=== PATIENT | female | born 1930 | race Caucasian/White ===

== ENCOUNTER → 2016-08-26 | Outpatient (CLI) | payer OTHER, BC | LOC: BMCIMAGING 15:28 | PROVIDERS: ATTEND Internal Medicine | DX: M25.562 Pain in left knee (principal) ==

== ENCOUNTER 2017-12-02 18:22 | Emergency (ER) | payer OTHER, BC ==
--- NOTE | 2017-12-02 18:59 | EDPHY ---
H & P Stated Complaint: STATES L HIP IS DISLOCATED BUT IS AMBULATORY Time Seen by Provider: 12/02/17 18:40 HPI/ROS: CHIEF COMPLAINT: Left hip pain HISTORY OF PRESENT ILLNESS: The patient is an 87-year-old female who states that she went to [facility] a few weeks ago and slipped on a trail. She has had moderate left hip pain ever since. A few days ago she began walking with a cane. She presented to her primary today who obtained x-rays that revealed a partially dislocated left hip. She had both hips replaced the several years ago. She denies knee or ankle pain. No back pain. REVIEW OF SYSTEMS: Constitutional: denies: chills, fever, recent illness, recent injury EENTM: denies: blurred vision, double vision, nose congestion Respiratory: denies: cough, shortness of breath Cardiac: denies: chest pain, irregular heart rate, lightheadedness, palpitations Gastrointestinal/Abdominal: denies: abdominal pain, diarrhea, nausea, vomiting, blood streaked stools Genitourinary: denies: dysuria, frequency, hematuria, pain Musculoskeletal: See HPI Skin: denies: lesions, rash, jaundice, bruising Neurological: denies: headache, numbness, paresthesia, tingling, dizziness, weakness Hematologic/Lymphatic: denies: blood clots, easy bleeding, easy bruising Immunologic/allergic: denies: HIV/AIDS, transplant EXAM: GENERAL: Well-appearing, well-nourished and in no acute distress. HEAD: Atraumatic, normocephalic. EYES: Pupils equal round and reactive to light, extraocular movements intact, sclera anicteric, conjunctiva are normal. ENT: TMs normal, nares patent, oropharynx clear without exudates. Moist mucous membranes. NECK: Normal range of motion, supple without lymphadenopathy or JVD. LUNGS: Breath sounds clear to auscultation bilaterally and equal. No wheezes rales or rhonchi. HEART: Regular rate and rhythm without murmurs, rubs or gallops. ABDOMEN: Soft, nontender, normoactive bowel sounds. No guarding, no rebound. No masses appreciated. BACK: No CVA tenderness, no spinal tenderness, step-offs or deformities EXTREMITIES: Left hip pain, normal range of motion. No pain with axial loading or rotation. No shortening. NEUROLOGICAL: Cranial nerves II through XII grossly intact. Normal speech, normal gait. 5/5 strength, normal movement in all extremities, normal sensation PSYCH: Normal mood, normal affect. SKIN: Warm, dry, normal turgor, no visible rashes or lesions. Source: Patient Exam Limitations: No limitations - Personal History Current Tetanus/Diphtheria Vaccine: Yes - Medical/Surgical History Hx Asthma: No Hx Chronic Respiratory Disease: No Hx Diabetes: No Hx Cardiac Disease: No Hx Renal Disease: No Hx Cirrhosis: No Hx Alcoholism: No Hx HIV/AIDS: No Hx Splenectomy or Spleen Trauma: No Other PMH: BILAT HIP REPLACEMENTS - Family History Significant Family History: No pertinent family hx - Social History Smoking Status: Never smoked Alcohol Use: Sober Drug Use: None Constitutional: Initial Vital Signs Temperature (C) 36.6 C 12/02/17 18:26 Heart Rate 79 12/02/17 18:26 Respiratory Rate 18 12/02/17 18:26 Blood Pressure 131/93 H 12/02/17 18:26 O2 Sat (%) 96 12/02/17 18:26 O2 Delivery Mode Room Air Allergies/Adverse Reactions: No Known Allergies Allergy (Unverified 12/02/17 18:26) Home Medications: Medication Instructions Recorded NK [No Known Home Meds] 12/02/17 Medical Decision Making - Diagnostics Imaging Results: Imaging Impressions Hip X-Ray 12/02/17 18:56 Impression: 1. Central position of the left femoral head component of the hip replacement within the acetabular component once traction and external rotation was applied. Good alignment post reduction. ED Course/Re-evaluation: 7:20 p.m. I am able to reduce the hip with traction even without sedation however it seems to sublux again when traction is released. I have paged Orthopedics for consultation. The 7:30 p.m. I discussed the case with Dr. Babb who was Orthopedics for the [facility]. He will review the images and call back. 7:[address] Babb states that the prosthesis is simply worn out and tends to sublux and should be replaced electively but not emergently. The patient is happy with this and states that she tolerates the pain well as long as she uses her cane. She will continue to do this and follow up with Dr. Babb next week. Differential Diagnosis: Partial list of the Differential diagnosis considered include but were not limited to; hip dislocation, subluxation and although unlikely based on the history and physical exam, I also considered infection, tendon injury, nerve injury, vascular injury, fracture. I discussed these differential diagnoses and the plan with the patient as well as the usual and expected course. The patient understands that the diagnosis is provisional and that in medicine we are not always correct and that further workup is often warranted. Usual and customary warnings were given. All of the patient's questions were answered. The patient was instructed to return to the emergency department should the symptoms at all worsen or return, otherwise to followup with the physician as we discussed. Departure - Departure Disposition: Home, Routine, Self-Care Clinical Impression: Left hip subluxation Qualifiers: Encounter type: initial encounter Qualified Code(s): S73.002A - Unspecified subluxation of left hip, initial encounter Condition: Fair Instructions: Joint Replacement Surgery (DC) Referrals: Elke Pereira MD [Primary Care Provider] - As per Instructions Salvador Babb MD [Medical Doctor] - As per Instructions
[2017-12-02 19:33] VITALS: BP 148/80
== END 2017-12-02 20:21 | disposition home or self-care (01) ==
PROC: 0SSBXZZ Reposition Left Hip Joint, External Approach (ICD-10-PCS; principal; 2017-12-02)
DX: T84.021A Dislocation of internal left hip prosthesis, initial encounter (principal); Y82.8 Other medical devices associated with adverse incidents

== ENCOUNTER → 2017-12-02 | Outpatient (CLI) | payer BC, OTHER | LOC: BMCIMAGING 16:45 | PROVIDERS: ATTEND Internal Medicine | DX: T84.021A Dislocation of internal left hip prosthesis, initial encounter (principal) ==

== ENCOUNTER 2017-12-11 16:51 | Emergency (ER) | payer OTHER ==
[2017-12-11] MEDS ORDERED: NS 500 ML IV ONE (17:44)
--- NOTE | 2017-12-11 17:49 | EDPHY ---
H & P Stated Complaint: ?CELLULITIS AND SWELLING BOTH LEGS/TX FOR UTI WITH DECREASED URINATION Time Seen by Provider: 12/11/17 17:17 HPI/ROS: CHIEF COMPLAINT:leg swelling and rash HISTORY OF PRESENT ILLNESS: This is an 87-year-old female who presents concerned about lower extremity swelling and rash. It appears to be advancing up her legs. She 1st noticed it yesterday. It is not pruritic. It is not painful. She states that she was recently treated for a urinary tract infection. She is unable to state what antibiotic was prescribed for her hand seems confused about the medication she was taking. She had an antibiotic that she was advised to take twice daily but instead she took it once daily and took another antibiotic that she had once daily. She tells me that she was given an antibiotic by her primary care provider and also given some pills by the laboratory at [facility]--this does not make sense to me. In any event, she began antibiotics around December 03 and recently discontinued them. She states that she has not urinated today. She has had some trouble passing her urine. When she wakes up in the morning she cannot make it to the bathroom so she is using adult diapers at night and voids what seems like a large amount in the morning. She has not had fever. She denies back pain. She also mentioned being treated for urinary tract infection in September, after returning from [facility]. I do not find any records supporting this. REVIEW OF SYSTEMS: A ten point review of systems was performed and is negative with the exception of the items mentioned in the HPI. I felt I felt that she was a difficult historian, as she had trouble staying on topic and keeping track of the time frames. Past medical history: Glaucoma Past surgical history: bilateral hip replacement Social history: She lives independently at the [facility]. No tobacco or alcohol use. General Appearance: Alert. Vital signs reviewed. HR 112 at triage ( subsequently normal), BP 106/62. Eyes: Pupils equal and round, no conjunctival injection, no discharge. Anicteric. ENT, Mouth: Mucous membranes are slightly dry, no oropharyngeal erythema or edema. Neck: No lymphadenopathy, supple. Respiratory: Lungs are clear to auscultation; no wheezes, rales, or rhonchi. Cardiovascular: Regular rate and rhythm; no murmur, rub, or gallop. Gastrointestinal: Abdomen is soft and nontender, no masses or organomegaly, bowel sounds normal. Skin: Warm and dry. Back: Nontender to palpation over the thoracolumbar spine. No CVAT. Extremities: Bilateral lower extremity edema, nonblanching contiguous purpuric lesions bilateral lower extremities below the knees, urticarial appearing rash above knees. FAROM both LEs. Neurological: Alert and oriented. Moving all four extremities easily and equally. Normal strength in both lower extremities. Sensation intact to light touch over both lower extremities. Pulses: 2+ femoral and dorsalis pedis pulses bilaterally. Psychiatric: Normal affect. - Personal History Current Tetanus Diphtheria and Acellular Pertussis (TDAP): Unsure - Medical/Surgical History Hx Asthma: No Hx Chronic Respiratory Disease: No Hx Diabetes: No Hx Cardiac Disease: No Hx Renal Disease: No Hx Cirrhosis: No Hx Alcoholism: No Hx HIV/AIDS: No Hx Splenectomy or Spleen Trauma: No Other PMH: BILAT HIP REPLACEMENTS - Social History Smoking Status: Never smoked Constitutional: Initial Vital Signs Temperature (C) 36.3 C 12/11/17 17:05 Heart Rate 112 H 12/11/17 17:05 Respiratory Rate 18 12/11/17 17:05 Blood Pressure 106/62 12/11/17 17:05 O2 Sat (%) 94 12/11/17 17:05 O2 Delivery Mode Room Air Allergies/Adverse Reactions: No Known Allergies Allergy (Verified 12/11/17 17:04) Home Medications: Medication Instructions Recorded Aspirin 81mg (*) 12/11/17 Glaucoma Meds 12/11/17 Macrobid 12/11/17 Medical Decision Making ED Course/Re-evaluation: I was initially concerned about continued urinary tract infection in the face of possibly not having follow directions for antibiotics. She stated that she was having difficulty urinating. She was unable to void while in the emergency department. She received 1.5 L of IV fluid. She still did not void and nursing staff was asked to obtain a catheterized urine. While attempting to do so the nurse noticed an anatomic abnormality and I was asked to evaluate her. I found an apparent uterine prolapse, easily reduced. The patient then told me that she had been noticing genital swelling but I suspect that she has actually been noticing this prolapse. Urine was then easily obtained with the catheter. There is no evidence of urinary tract infection. Chemistries show that her creatinine is elevated at 1.1, it has previously been normal. There is no hematuria or proteinuria and I do not suspect glomerular nephritis. She has a slight elevation of her white blood cell count but does not appear ill or septic. I thought that her leg swelling and rash was likely a reaction to antibiotics. However, she did not know what antibiotic she had been taking. Initially I thought that she was possibly on Bactrim which is known to cause skin reaction in some people. However, friend went to her house and brought all of the medications that were in the bathroom. There was a bottle of Macrobid which was empty and had recently been prescribed by her PCP. This was the antibiotic that she had been taking for her urinary tract infection. The other antibiotic was doxycycline which was prescribed in June of 2017. Distally the rash appears vasculitic but the rash over her thighs looks more urticarial. I do not think that she is in immediate danger from this rash/vasculitis but I have urged her to be re-evaluated by her primary care provider early this coming week. We also reviewed danger signs that should prompt her to return to the emergency department. She is comfortable returning home and, in fact, would like to do so. She did not void spontaneously in the emergency department and she understands that if she does not do so she will need to return. - Data Points Laboratory Results: Laboratory Results 12/11/17 17:28 12/11/17 17:28 Medications Given: Discontinued Medications Sodium Chloride (Ns) 500 mls @ 0 mls/hr IV EDNOW ONE; Wide Open PRN Reason: Protocol Stop: 12/11/17 17:45 Last Admin: 12/11/17 17:49 Dose: 500 mls Sodium Chloride (Ns) 1,000 mls @ 0 mls/hr IV ONCE ONE PRN Reason: Wide Open Stop: 12/11/17 19:37 Last Admin: 12/11/17 19:42 Dose: 1,000 mls Departure - Departure Disposition: Home, Routine, Self-Care Clinical Impression: Uterine prolapse, Elevated serum creatinine Condition: Good Instructions: Uterine Prolapse (ED), Impaired Kidney Function (ED) Additional Instructions: There is no sign of a urinary tract infection in your urine tonight. You appear to have a uterine prolapse that might be affecting your ability to urinate. Also, it sounds as if you are not drinking enough water. Your kidney function tonight is abnormal. This needs to be rechecked by Dr. Pereira. I am not certain what has caused the rash on your legs. Initially I thought that it was related to the antibiotics that you are taking. That might still be the case but the rash needs further investigation. There are many other possible causes. You do not have an infection in your legs. Please call Dr. Pereira's office 1st thing Thursday morning. Let her know that you were in the emergency department with these problems. I would like you to be seen by her on Thursday or Thursday. If you are worse in any way over the weekend you should return to the emergency department for a re-evaluation. Referrals: Elke Pereira MD [Primary Care Provider] - As per Instructions
[2017-12-11 18:02] LABS: PLATELET COUNT 274 10^3/uL (150-400)
[2017-12-11] MEDS ORDERED: NS 1,000 ML IV ONE (19:36)
[2017-12-11 22:44] VITALS: BP 108/68
== END 2017-12-11 22:52 | disposition home or self-care (01) ==
DX: N81.4 Uterovaginal prolapse, unspecified (principal); R94.4 Abnormal results of kidney function studies; E86.9 Volume depletion, unspecified; Z79.82 Long term (current) use of aspirin

== ENCOUNTER → 2017-12-16 | Outpatient (CLI) | payer OTHER, BC | LOC: FIMAGING 09:02 | PROVIDERS: ATTEND Internal Medicine | DX: N13.30 Unspecified hydronephrosis (principal) ==

== ENCOUNTER → 2017-12-21 | Outpatient (CLI) | payer OTHER, BC ==
[~2017-12-21] MED LIST: IOPAMIDOL (ISOVUE-300) 100 ML BTL ONE
== END ==
LOC: CIMAGING 07:48
PROVIDERS: ATTEND Internal Medicine
DX: N13.30 Unspecified hydronephrosis (principal); N28.9 Disorder of kidney and ureter, unspecified; R91.1 Solitary pulmonary nodule; K86.2 Cyst of pancreas; K57.90 Diverticulosis of intestine, part unspecified, without perforation or abscess without bleeding; M51.36 Other intervertebral disc degeneration, lumbar region; M43.16 Spondylolisthesis, lumbar region; M48.061 Spinal stenosis, lumbar region without neurogenic claudication; K62.3 Rectal prolapse
CPT/HCPCS: 74178; Q9967

== ENCOUNTER → 2017-12-30 | Outpatient (CLI) | payer OTHER, BC | LOC: FIMAGING 13:02 | PROVIDERS: ATTEND Internal Medicine | DX: R22.43 Localized swelling, mass and lump, lower limb, bilateral (principal); M79.605 Pain in left leg ==

== ENCOUNTER 2018-01-22 23:20 | Emergency (ER) | payer OTHER, BC ==
[2018-01-22] MEDS ORDERED: NS 1,000 ML IV ONE (23:28)
[2018-01-22 23:52] LABS: PLATELET COUNT 292 10^3/uL (150-400)
--- NOTE | 2018-01-23 00:08 | EDPHY ---
H & P Stated Complaint: Fall Time Seen by Provider: 01/22/18 23:26 HPI/ROS: HPI The patient presents with a fall which occurred approximately 30 min to 1 hr prior to her arrival, she is brought in by ambulance. Bystanders found her on [facility] lying face down and unable to stand up using her cane. She tried multiple times to stand up but was unable. Paramedics helped her up. She was unable to walk using her cane. The patient seemed confused, said she was visiting from out of town though she had an ID saying that she lived in [place]. She is sustained a lip laceration. She denies any headache, vomiting , changes in her vision. She says that she uses a cane for history of left hip subluxation but cannot recall any of her medications. REVIEW OF SYSTEMS Constitutional: No fever, no chills. Eyes: No discharge. ENT: No sore throat. Cardiovascular: No chest pain, no palpitations. Respiratory: No cough, no shortness of breath. Gastrointestinal: No abdominal pain, no vomiting. Genitourinary: No hematuria. Musculoskeletal: No back pain. Skin: No rashes. Neurological: No headache. PMHx: Per our records, history of uterine prolapse, glaucoma, hip subluxation Soc Hx: Resides at [facility] PHYSICAL General Appearance: Alert, no distress Eyes: Pupils equal and round no pallor or injection ENT, Mouth: Mucous membranes moist, there is a 2 cm longitudinal lower lip laceration which is superficial Respiratory: There are no retractions, lungs are clear to auscultation Cardiovascular: Regular rate and rhythm Gastrointestinal: Abdomen is soft and non-tender, no masses, bowel sounds normal Neurological: A&O, cranial nerves 2-12 intact, strength is 5/5 in upper and lower extremities Skin: Warm and dry, no rashes Musculoskeletal: Neck is supple non tender, left knee with edema overlying the patella with full range of motion and no erythema present Extremities: symmetrical, full range of motion Psychiatric: Patient is oriented X 3, there is no agitation Source: Patient, EMS Exam Limitations: No limitations - Personal History Current Tetanus/Diphtheria Vaccine: Yes Current Tetanus Diphtheria and Acellular Pertussis (TDAP): Yes - Medical/Surgical History Hx Asthma: No Hx Chronic Respiratory Disease: No Hx Diabetes: No Hx Cardiac Disease: No Hx Renal Disease: No Hx Cirrhosis: No Hx Alcoholism: No Hx HIV/AIDS: No Hx Splenectomy or Spleen Trauma: No Other PMH: BILAT HIP REPLACEMENTS, - Social History Smoking Status: Never smoked Constitutional: Initial Vital Signs Temperature (C) 36.3 C 01/22/18 23:28 Heart Rate 87 01/22/18 23:28 Respiratory Rate 16 01/22/18 23:28 Blood Pressure 116/71 01/22/18 23:28 O2 Sat (%) 95 01/22/18 23:28 O2 Delivery Mode Room Air Allergies/Adverse Reactions: brimonidine [From Alphagan P] Allergy (Verified 01/22/18 23:31) Home Medications: Medication Instructions Recorded Aspirin [Aspirin 81mg (*)] 81 mg PO DAILY 12/11/17 Latanoprost 0.005% [Xalatan 0.005% 1 drops EACHEYE HS 01/15/18 (*)] Multivitamins [Multivitamin (*)] 1 each PO DAILY 01/15/18 Timolol 0.5% [TIMOPTIC 0.5% (*)] 1 drops EACHEYE BID 01/15/18 Medical Decision Making - Diagnostics Imaging Results: CT head shows no acute intracranial hemorrhage, discussed with Dr. Mendoza of Radiology. Imaging: Discussed imaging studies w/ knitted goods shaper Radiologist Differential Diagnosis: 87-year-old female who seems to resides at assisted living presents after a fall while walking on the street with her cane, unable to get up afterwards. Patient does recall that she slipped and fell and did not lose consciousness. She sustained a lip laceration, has edema of her prepatellar bursa on her left knee however denies any other injuries and her exam is unremarkable. She seems to be clearing from what paramedics had reported because she can tell me that she lives at the [facility] and can tell me most of her past medical history. Differential diagnosis includes concussion, intracranial hemorrhage, lip laceration. In the emergency department, patient's wounds were cleansed. We applied Dermabond to her lip laceration. Her CT scan of her head was unremarkable for any acute intracranial hemorrhage. Labs including a CBC, BMP, UA were checked and were all unremarkable. The patient felt well, was able to walk in the emergency department without any difficulty using her cane. She would like to return home to the [facility] and I think this is appropriate. It seems that her fall was mechanical. Her confusion that she experience with the paramedics has resolved, she is oriented x3. She may have suffered from a mild concussion and I have explained this to her. She will need to follow up with her primary care doctor in a few days for further care if she has any ongoing symptoms. - Data Points Laboratory Results: Laboratory Results 01/22/18 23:44 01/22/18 23:44 01/23/18 01/22/18 01/22/18 01:03 23:44 23:44 WBC 7.16 10^3/uL 10^3/uL (3.80-9.50) RBC 4.31 10^6/uL 10^6/uL (4.18-5.33) Hgb 12.6 g/dL g/dL (12.6-16.3) Hct 38.5 % % (38.0-47.0) MCV 89.3 fL fL (81.5-99.8) MCH 29.2 pg pg (27.9-34.1) MCHC 32.7 g/dL g/dL (32.4-36.7) RDW 14.6 % % (11.5-15.2) Plt Count 292 10^3/uL 10^3/uL (150-400) MPV 10.2 fL fL (8.7-11.7) Neut % (Auto) 64.2 % % (39.3-74.2) Lymph % (Auto) 25.0 % % (15.0-45.0) [place] % (Auto) 6.7 % % (4.5-13.0) Eos % (Auto) 2.8 % % (0.6-7.6) Baso % (Auto) 1.0 % % (0.3-1.7) Nucleat RBC Rel Count 0.0 % % (0.0-0.2) Absolute Neuts (auto) 4.60 10^3/uL 10^3/uL (1.70-6.50) Absolute Lymphs (auto) 1.79 10^3/uL 10^3/uL (1.00-3.00) Absolute Monos (auto) 0.48 10^3/uL 10^3/uL (0.30-0.80) Absolute Eos (auto) 0.20 10^3/uL 10^3/uL (0.03-0.40) Absolute Basos (auto) 0.07 10^3/uL 10^3/uL (0.02-0.10) Absolute Nucleated RBC 0.00 10^3/uL 10^3/uL (0-0.01) Immature Gran % 0.3 % % (0.0-1.1) Immature Gran # 0.02 10^3/uL 10^3/uL (0.00-0.10) Sodium 141 mEq/L mEq/L (135-145) Potassium 4.1 mEq/L mEq/L (3.3-5.0) Chloride 109 mEq/L mEq/L (97-110) Carbon Dioxide 26 mEq/l mEq/l (22-31) Anion Gap 6 mEq/L L mEq/L (8-16) BUN 21 mg/dL mg/dL (7-23) Creatinine 0.9 mg/dL mg/dL (0.6-1.0) Estimated GFR 59 Glucose 113 mg/dL H mg/dL (70-100) Calcium 9.4 mg/dL mg/dL (8.5-10.4) Total Bilirubin 0.5 mg/dL mg/dL (0.1-1.4) AST 22 IU/L IU/L (14-46) ALT 15 IU/L IU/L (9-52) Alkaline Phosphatase 59 IU/L IU/L (38-126) Total Protein 6.7 g/dL g/dL (6.3-8.2) Albumin 3.9 g/dL g/dL (3.5-5.0) Urine Color YELLOW Urine Appearance CLEAR Urine pH 5.0 (5.0-7.5) Ur Specific [place] 1.030 (1.002-1.030) Urine Protein NEGATIVE (NEGATIVE) Urine Ketones TRACE H (NEGATIVE) Urine Blood NEGATIVE (NEGATIVE) Urine Nitrate NEGATIVE (NEGATIVE) Urine Bilirubin NEGATIVE (NEGATIVE) Urine Urobilinogen 2.0 EU H EU (0.2-1.0) Ur Leukocyte Esterase TRACE H (NEGATIVE) Urine RBC 3-5 /hpf H /hpf (0-3) Urine WBC 1-3 /hpf /hpf (0-3) Ur Epithelial Cells TRACE /lpf /lpf (NONE-1+) Urine Mucus TRACE /lpf /lpf (NONE-1+) Urine Glucose NEGATIVE (NEGATIVE) Medications Given: Discontinued Medications Sodium Chloride (Ns) 1,000 mls @ 0 mls/hr IV EDNOW ONE; Wide Open PRN Reason: Protocol Stop: 01/22/18 23:29 Last Admin: 01/23/18 00:15 Dose: 1,000 mls Departure - Departure Disposition: Home, Routine, Self-Care Clinical Impression: Prepatellar bursitis of left knee Fall Qualifiers: Encounter type: initial encounter Qualified Code(s): W19.XXXA - Unspecified fall, initial encounter Lip laceration Qualifiers: Encounter type: initial encounter Qualified Code(s): S01.511A - Laceration without foreign body of lip, initial encounter Condition: Good Instructions: Concussion (ED), Fall Prevention for Older Adults (ED) Additional Instructions: You should return to the emergency department if you are worse in any way. You may have suffered from a concussion. You should make sure to rest for the next several days. You need to follow up with your regular doctor in 1-2 days. Referrals: Elke Pereira MD [[facility] Primary Care Provider] - As per Instructions
[2018-01-23] MEDS ORDERED: SKIN ADHESIVE (DERMABOND) 1 EACH TP ONE (00:44)
[2018-01-23 02:49] VITALS: BP 105/69
== END 2018-01-23 02:50 | disposition home or self-care (01) ==
LOC: EDUNIT#
PROC: 0CQ1XZZ Repair Lower Lip, External Approach (ICD-10-PCS; principal; 2018-01-22)
DX: S01.511A Laceration without foreign body of lip, initial encounter (principal); M70.42 Prepatellar bursitis, left knee; E86.9 Volume depletion, unspecified; Z79.82 Long term (current) use of aspirin; W19.XXXA Unspecified fall, initial encounter; Y92.410 Unspecified street and highway as the place of occurrence of the external cause

== ENCOUNTER 2018-04-21 14:51 | Emergency (ER) | payer OTHER, BC ==
--- NOTE | 2018-04-21 15:32 | EDPHY ---
H & P Stated Complaint: Confusion and hallucinations since 04/20/18 Time Seen by Provider: 04/21/18 15:08 HPI/ROS: CHIEF COMPLAINT: Patient is concerned about upcoming hip surgery, caregivers report delusional thinking/hallucinations that are thought to be new since yesterday HISTORY OF PRESENT ILLNESS: This is an 87 year old female who [facility] She is accompanied by one of her caregivers, but not the caregiver who spends the most time with her. There is a concern at the [facility] that the patient has been hallucinating (reporting people in her room that are planning an outing of some sort and other events that seem not to be real). Staff is particularly concerned that she might have UTI, as she has history of UTIs and has uterine prolapse for which she uses pessary. The patient herself does not think that she is confused, nor does she think that she is seeing or hearing things that aren't there. She denies headache. No recent illness or fever. No urinary symptoms. The patient is concerned about an upcoming hip surgery--repair of previous left hip arthroplasty. She tells me that she has not seen the surgeon yet (apparently not the case). I am told that she has undergone a pre-operative cardiac evaluation and that she is scheduled to see the orthopedist tomorrow for final pre-op planning. The patient tells me that she is not taking the medications that were prescribed by the claim rep (atorvastatin, losartan, metoprolol). REVIEW OF SYSTEMS: A ten system review of systems was performed and is negative with the exception of the items mentioned in the HPI. Caregiver helped with ROS. Past medical history: 1. UTI 2. Uterine prolapse 3. Depression Past surgical history: Bilateral hip replacements, left arthroplasty failure Social history: [facility]. 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 She is . No tobacco use. General Appearance: Alert. Vital signs reviewed. Heart rate 101 at triage. Eyes: Pupils equal and round, no conjunctival injection, no discharge. Anicteric. ENT, Mouth: Mucous membranes are moist, no oropharyngeal erythema or edema. Neck: No lymphadenopathy, supple. Respiratory: Lungs are clear to auscultation; no wheezes, rales, or rhonchi. Cardiovascular: Regular rate and rhythm; no murmur, rub, or gallop. Not tachycardic. Gastrointestinal: Abdomen is soft and nontender, no masses or organomegaly, bowel sounds normal. Skin: Warm and dry, no rashes on exposed skin, normal color. Back: Nontender to palpation over the thoracolumbar spine. No CVAT. Extremities: No lower extremity edema, no calf tenderness or swelling. Neurological: Alert. Oriented to self, not to date or situation. Moving all four extremities easily. Cranial nerves II through XII are examined and are intact (visual acuity not tested). Strength is 5 over 5 bilaterally with testing of all major motor groups. Sensation is intact to light touch over all 4 extremities. Gait tested--she uses a cane and is able to ambulate with cane. Psychiatric: Normal affect. No agitation. Does not appear to be attending to outside stimuli. - Personal History Current Tetanus Diphtheria and Acellular Pertussis (TDAP): Yes - Medical/Surgical History Hx Asthma: No Hx Chronic Respiratory Disease: No Hx Diabetes: No Hx Cardiac Disease: No Hx Renal Disease: No Hx Cirrhosis: No Hx Alcoholism: No Hx HIV/AIDS: No Hx Splenectomy or Spleen Trauma: No Other PMH: BILAT HIP REPLACEMENTS. UTI- Apr 2018. - Social History Smoking Status: Never smoked Constitutional: Initial Vital Signs Temperature (C) 36.5 C 04/21/18 14:56 Heart Rate 101 H 04/21/18 14:56 Respiratory Rate 16 04/21/18 14:56 Blood Pressure 124/72 H 04/21/18 14:56 O2 Sat (%) 93 04/21/18 14:56 O2 Delivery Mode Room Air Allergies/Adverse Reactions: brimonidine [From Alphagan P] Allergy (Verified 04/24/18 20:33) Home Medications: Medication Instructions Recorded Aspirin [Aspirin 81mg (*)] 81 mg PO DAILY 12/11/17 Latanoprost 0.005% [Xalatan 0.005% 1 drops EACHEYE HS 01/15/18 (*)] Multivitamins [Multivitamin (*)] 1 each PO DAILY 01/15/18 Timolol 0.5% [TIMOPTIC 0.5% (*)] 1 drops EACHEYE BID 01/15/18 Medical Decision Making - Diagnostics EKG Interpretation: EKG reviewed in MUSE. It shows sinus rhythm, rate 74. Age indeterminate infarcts. ED Course/Re-evaluation: 87-year-old female with some baseline confusion who reportedly is worse today. She is not aware of any confusion. She has no complaints aside from concern of about a hip surgery that is planned for later this month. Head CT reported to me by Dr. Dumont. It is negative for acute changes. It was compared to CT done 3 months ago. I reviewed her labs. CBC, chemistries , and UA are all normal. Spoke with Dr. Pereira, her PCP. She reports delusional thinking, increasing confusion. She is comfortable with this patient returning home and seeing her in the office. Patient and caregiver expressed some interest in admission for TIA work-up. It is my impression that her presentation is not acute, although there might certainly be an exacerbation of ongoing confusion. I have not found a cause for such an exacerbation--such as UTI or infection, hypoxia, intracranial bleed. I doubt TIA--symptoms are global. I do not feel that she needs hospitalization for TIA evaluation and, if such a work-up is found to be needed, Dr. Pereira can arrange it expeditiously as an outpatient. Above discussed with patient and caregiver. Danger signs reviewed. Patient discharged home. Differential Diagnosis: DDX of altered mental status including but not limited to progressive dementia, infection, electrolyte disturbance, intracranial bleed, stroke, intoxicants, hypoxia. - Data Points Laboratory Results: Laboratory Results 04/21/18 16:05 04/21/18 16:05 Departure - Departure Disposition: Home, Routine, Self-Care Clinical Impression: Confusion Condition: Good Instructions: Altered Mental Status (ED) Additional Instructions: Call Dr. Pereira's office tomorrow to arrange an appointment. Please take 1 baby aspirin, 81 mg, daily. Dr. Pereira will make arrangements for any further testing that needs to be done. Referrals: Elke Pereira MD [Primary Care Provider] - As per Instructions
[2018-04-21 16:19] LABS: PLATELET COUNT 284 10^3/uL (150-400)
[2018-04-21 17:59] VITALS: BP 144/80
--- NOTE | 2018-04-21 23:12 | CPEKG ---
Test Reason : OPEN Blood Pressure : / mmHG Vent. Rate : 074 BPM Atrial Rate : 077 BPM P-R Int : 181 ms QRS Dur : 075 ms QT Int : 386 ms P-R-T Axes : 019 -17 -25 degrees QTc Int : 429 ms Sinus arrhythmia Probable left atrial enlargement Inferior infarct, age indeterminate Probable anterior infarct, age indeterminate Confirmed by Sarah Singh ([id number]) on 04/21/2018 11:11:28 PM Referred By: Confirmed By:Sarah Singh
== END 2018-04-21 17:59 | disposition home or self-care (01) ==
LOC: UNDOADMOB 17:58
DX: R41.0 Disorientation, unspecified (principal)

== ENCOUNTER 2018-04-24 20:25 | Emergency (ER) | payer OTHER, BC ==
--- NOTE | 2018-04-24 20:28 | EDPHY ---
H & P Time Seen by Provider: 04/24/18 20:27 HPI/ROS: CHIEF COMPLAINT: Confusion HISTORY OF PRESENT ILLNESS: Was here on 04/21/2018 and had negative head CT labs and urinalysis. Returns for concern about continued confusion per EMS, although the patient says she feels fine. Staff at [facility] sent her here for evaluation. Since her previous visit she did sustain a fall and she says she has facial bruising because of her glasses on the left side. Denies loss of consciousness or neck pain. REVIEW OF SYSTEMS: Eye: no change in vision, no double vision or blurry vision ENT: no sore throat Cardiac: no chest pain or syncope Pulmonary: no cough or SOB Abdomen: no vomiting, diarrhea, abdominal pain Musculoskeletal: no back pain or neck pain, does have chronic problems with her left hip and recurrent dislocations Skin: Bruising around her left eye. Neuro: no headache Constitutional: no fever : no urinary symptoms A comprehensive 10 point review of systems is otherwise negative aside from elements mentioned in the history of present illness. PAST MEDICAL HISTORY: Includes hypercholesterolemia, glaucoma, aortic stenosis , back pain. Bilateral hip replacements. Social history: Nonsmoker, no alcohol. Used to live in [place] General Appearance: Alert and conversant, cooperative. Eyes: No scleral icterus. Pupils equal round reactive extraocular motion intact, bruising around the left eye. ENT, Mouth: Normal mucous membranes. Respiratory: Normal respiratory effort, breath sounds equal, lungs are clear to auscultation. Cardiovascular: Regular rate and rhythm. 1/6 systolic murmur. Gastrointestinal: Abdomen is soft and non tender. Neurological: Alert, face symmetric, normal motor and sensory in extremities. She does have a little bit of decreased range of motion of the left hip which is chronic for her. She knows where she is and that it is 2018. Skin: Warm and dry, no rashes. Musculoskeletal: No peripheral edema. Psychiatric: Not agitated. Emergency Department course/MDM: Will repeat diagnostics. CT head performed for recent head trauma, age, report of altered mental status. CT head no change, Sharmila [id number]. Will not repeat urinalysis with negative UA 3 days ago and no urinary symptoms today. Does not appear to have confusion here. We had a discussion regarding when she lived in [place], her fall from yesterday, her emergency department visit from 3 days ago. Patient would like to return home which I think is reasonable. Constitutional: Initial Vital Signs Temperature (C) 36.8 C 04/24/18 20:38 Heart Rate 92 04/24/18 20:38 Respiratory Rate 20 04/24/18 20:38 Blood Pressure 124/84 H 04/24/18 20:38 O2 Sat (%) 96 04/24/18 20:38 O2 Delivery Mode Room Air Allergies/Adverse Reactions: brimonidine [From Alphagan P] Allergy (Verified 04/24/18 20:33) Home Medications: Medication Instructions Recorded Aspirin [Aspirin 81mg (*)] 81 mg PO DAILY 12/11/17 Latanoprost 0.005% [Xalatan 0.005% 1 drops EACHEYE HS 01/15/18 (*)] Multivitamins [Multivitamin (*)] 1 each PO DAILY 01/15/18 Timolol 0.5% [TIMOPTIC 0.5% (*)] 1 drops EACHEYE BID 01/15/18 Medical Decision Making - Diagnostics EKG Interpretation: 12-lead EKG interpreted by me; official reading is in computer system. My interpretation is sinus rhythm rate 84, probable old inferior NM, late anterior RS transition. Similar to previous in computer system. Imaging Results: Imaging Impressions Head CT 04/24/18 20:43 Impression: Senescent features, with no acute intracranial abnormality identified on this unenhanced CT evaluation. If there is further clinical concern regarding the patient's symptoms, MR imaging is suggested, if not otherwise contraindicated. Findings were discussed with BRYANT LÓPEZ MD at 21:48, on 04/24/2018. Imaging: Discussed imaging studies w/ mail caller Radiologist Differential Diagnosis: Differential considered including but not limited to delirium, dementia, intracranial injury such as subarachnoid or subdural or epidural, metabolic, ACS infectious. - Data Points Laboratory Results: Laboratory Results 04/24/18 21:03 04/24/18 21:03 04/24/18 04/24/18 21:03 21:03 WBC 7.48 10^3/uL 10^3/uL (3.80-9.50) RBC 4.51 10^6/uL 10^6/uL (4.18-5.33) Hgb 13.0 g/dL g/dL (12.6-16.3) Hct 39.8 % % (38.0-47.0) MCV 88.2 fL fL (81.5-99.8) MCH 28.8 pg pg (27.9-34.1) MCHC 32.7 g/dL g/dL (32.4-36.7) RDW 13.7 % % (11.5-15.2) Plt Count 302 10^3/uL 10^3/uL (150-400) MPV 9.9 fL fL (8.7-11.7) Neut % (Auto) 56.6 % % (39.3-74.2) Lymph % (Auto) 31.7 % % (15.0-45.0) [place] % (Auto) 7.9 % % (4.5-13.0) Eos % (Auto) 2.8 % % (0.6-7.6) Baso % (Auto) 0.9 % % (0.3-1.7) Nucleat RBC Rel Count 0.0 % % (0.0-0.2) Absolute Neuts (auto) 4.23 10^3/uL 10^3/uL (1.70-6.50) Absolute Lymphs (auto) 2.37 10^3/uL 10^3/uL (1.00-3.00) Absolute Monos (auto) 0.59 10^3/uL 10^3/uL (0.30-0.80) Absolute Eos (auto) 0.21 10^3/uL 10^3/uL (0.03-0.40) Absolute Basos (auto) 0.07 10^3/uL 10^3/uL (0.02-0.10) Absolute Nucleated RBC 0.00 10^3/uL 10^3/uL (0-0.01) Immature Gran % 0.1 % % (0.0-1.1) Immature Gran # 0.01 10^3/uL 10^3/uL (0.00-0.10) Sodium 137 mEq/L mEq/L (135-145) Potassium 4.1 mEq/L mEq/L (3.3-5.0) Chloride 103 mEq/L mEq/L (97-110) Carbon Dioxide 27 mEq/l mEq/l (22-31) Anion Gap 7 mEq/L mEq/L (6-14) BUN 18 mg/dL mg/dL (7-23) Creatinine 0.9 mg/dL mg/dL (0.6-1.0) Estimated GFR 59 Glucose 111 mg/dL H mg/dL (70-100) Calcium 9.5 mg/dL mg/dL (8.5-10.4) Departure - Departure Disposition: Home, Routine, Self-Care Clinical Impression: Facial contusion Condition: Good Instructions: Head Injury (ED) Referrals: Elke Pereira MD [[facility] [place]] - As per Instructions
--- NOTE | 2018-04-24 21:16 | CPEKG ---
Test Reason : OPEN Blood Pressure : / mmHG Vent. Rate : 084 BPM Atrial Rate : 083 BPM P-R Int : 196 ms QRS Dur : 084 ms QT Int : 393 ms P-R-T Axes : 007 -14 -28 degrees QTc Int : 465 ms Sinus rhythm Inferior infarct, age indeterminate Probable anterior infarct, age indeterminate Confirmed by Logan Carver ([id number]) on 04/24/2018 9:16:13 PM Referred By: Confirmed By:Logan Carver
[2018-04-24 21:19] LABS: PLATELET COUNT 302 10^3/uL (150-400)
[2018-04-24 22:49] VITALS: BP 106/78
== END 2018-04-24 22:49 | disposition home or self-care (01) ==
LOC: EDUNIT#
DX: S00.12XD Contusion of left eyelid and periocular area, subsequent encounter (principal); I35.0 Nonrheumatic aortic (valve) stenosis; E78.00 Pure hypercholesterolemia, unspecified; W19.XXXA Unspecified fall, initial encounter; Y92.129 Unspecified place in nursing home as the place of occurrence of the external cause

== ENCOUNTER 2018-05-05 06:10 | Inpatient (IN) | payer BC, OTHER ==
--- NOTE | 2018-04-26 10:43 | GHP ---
DATE OF ADMISSION: 04/28/2018 PROBLEM: Failed left total hip arthroplasty. HISTORY OF PRESENT ILLNESS: The patient is an 87-year-old woman admitted for revision surgery on her left total hip arthroplasty. Her original surgery was performed in [place], [place] in 1994. She yeager s also had a right total hip arthroplasty without any complications. In November of 2017, she developed i ncreasing pain in her left hip. She was seen in the emergency room for what was initially thought to be a dislocated total hip. It could not be reduced. It turned out to be excessive polyethylene wea r. She continues to feel the subluxation sensation and this is painful. Outpatient evaluation shows severe polyethylene wear. PAST MEDICAL HISTORY: She lives at the [facility]. She has a history of coronary artery disease. She is also treated for hypertension and elevated cholesterol. She has significant dementia. She has been evaluated by the laundry pricing clerk of the [facility] and cleared for surgery, rebecca magallanesugh she is a high risk. CURRENT MEDICATIONS: Atorvastatin 10 mg per day, losartan 25 mg per day, metoprolol 25 mg per day. She uses 2 different eye drops for glaucoma. ALLERGIES: Drug allergies: Brimonidine. Metal allergy: None. Latex allergy: None. SOCIAL HISTORY: The patient is a . She does not smoke cigarettes or drink alcohol. She lives alone at The [facility]. PHYSICAL EXAMINATION: GENERAL: She is a thin, healthy-appearing elderly woman. She is confused at times. VITAL SIGNS: Height 5 feet 4 inches. Weight 132 pounds. BMI 22.7. EYES: She has bilatera l arcus senilis. The pupils are round and reactive. MOUTH: Good oral hygiene. No loose teeth. CH EST: Clear. HEART: Regular rhythm. No murmurs. EXTREMITIES: Pertinent findings are limited to h er left hip. She has full hip extension and 90 degrees of flexion. External rotation 40 degrees. I nternal rotation 0 degrees. IMAGING: Her films show superior and lateral positioning of her femoral head in the acetabulum. She has a cemented femoral stem in a press-fit cup. The stem looks solid. IMPRESSION ON ADMISSION: 1. 23 years status post left total hip arthroplasty with excessive polyethylene wear and associated pain and subluxation of her femoral head. 2. Status post right total hip arthroplasty. 3. Coronary artery disease. 4. Treatment for elevated cholesterol and hypertension. 5. Dementia. PLAN: She will undergo revision surgery on her left total hip. Hopefully, I will be able to do a he ad and liner exchange. I do not anticipate having to revise the femoral stem. Hopefully, I will not have to remove her whole acetabular component. The surgery has been described to her and to her caregiver, including the risks, complications, expec tations, and recovery time. She is at a higher risk for dislocation because this is a revision situa tion. I have talked to her about leg length difference, infection, and sciatic nerve injury. I thin k her dementia will be a significant problem and will be aggravated by the anesthesia and being in [facility]. She plans on going to a rehab facility following discharge. All her questions have been answered. I have answered all her caregiver's questions. She consents to surgery. /[id number]/MODL
[~2018-05-05 06:10] MED LIST changes: -IOPAMIDOL (ISOVUE-300) 100 ML BTL ONE; +POVIDONE-IODINE 20 ML in SODIUM CL IRRIG SOLUTION 500 ML IRR ONE; +ROPIVACAINE 0.2% 80 MG, EPINEPHrine 0.2 MG, KETOROLAC TROMETHAMINE 30 MG in SYRINGE 0 ML IU ONE; +TRANEXAMIC ACID 1,000 MG in NS 100 ML IV ONE; +TRANEXAMIC ACID 3,000 MG in NS (SYRINGE) 50 ML IRR ONE
[2018-05-05] MEDS ORDERED: GABAPENTIN 300 MG CAP PO ONE (06:20)
[2018-05-05] MEDS ORDERED: ACETAMINOPHEN 325 MG TAB PO ONE (06:20)
[2018-05-05] MEDS ORDERED: ceFAZolin 2 GM/DEXTROSE 100 ML IV ONE (06:20)
[2018-05-05] MEDS ORDERED: ONDANSETRON 4 MG/2 ML VIAL IVP ONE (06:20)
[2018-05-05] MEDS ORDERED: FAMOTIDINE 20 MG TAB PO ONE (06:20)
[2018-05-05] MEDS ORDERED: DEXAMETHASONE 4 MG/ML VIAL IVP ONE (06:20)
[2018-05-05] MEDS ORDERED: LR 1,000 ML IV ONE (06:22)
[2018-05-05] MEDS ORDERED: LIDOCAINE 1% 2 ML INJ ID PRN (06:22)
[2018-05-05] MEDS ORDERED: TRANEXAMIC ACID 1,000 MG/10 ML VIAL ONE (07:48)
[2018-05-05] MEDS ORDERED: ceFAZolin 1 GM/5 ML SYR ONE (07:49)
[2018-05-05] MEDS ORDERED: TRANEXAMIC ACID 3,000 MG/50 ML BAG IRR ONE (08:04)
--- NOTE | 2018-05-05 08:05 | PDHPUP ---
History & Physical Update H&P update statement: This history and physical update is based on an assessment of the patient which was completed after admission or registration (within 24 hours), but prior to the surgery/procedure. H&P update: H&P reviewed & patient examined
--- NOTE | 2018-05-05 08:11 | PDANEPAE ---
ANE History of Present Illness L hip djd, L ASHLEIGH ANE Past Medical History - Cardiovascular History Hx Hypertension: Yes Hx Arrhythmias: No Hx Chest Pain: No Hx Coronary Artery / Peripheral Vascular Disease: Yes Hx CHF / Valvular Disease: Yes Hx Palpitations: No Cardiovascular History Comment: ISCHEMIC CARDIOMYOPATHY. HEART MURMUR. AORTIC STENOSIS. CHF 01/2018 - Pulmonary History Hx COPD: No Hx Asthma/Reactive Airway Disease: No Hx Recent Upper Respiratory Infection: No Hx Oxygen in Use at Home: No Hx Sleep Apnea: No Sleep Apnea Screening Result - Last Documented: Negative - Neurologic History Hx Cerebrovascular Accident: No Hx Seizures: No Hx Dementia: Yes - Endocrine History Hx Diabetes: No - Renal History Hx Renal Disorders: Yes Renal History Comment: UTI 11/2017 - Liver History Hx Hepatic Disorders: No - Neurological & Psychiatric Hx Hx Neurological and Psychiatric Disorders: No - Cancer History Hx Cancer: No - Congenital Disorder History Hx Congenital Disorders: No - GI History Hx Gastrointestinal Disorders: Yes Gastrointestinal History Comment: COLON POLYPS - Other Health History Other Health History: UTERINE PROLAPSE. OSTEOARTHRITIS. GLAUCOMA - Chronic Pain History Chronic Pain: Yes (LT HIP) - Surgical History Prior Surgeries: BILATERAL TOTAL HIPS. REMVL CALCIUM DEPOSITS FINGERS. GLORIA CATARACTS. TRABECULECTOMY ANE Review of Systems Review of Systems: - Exercise capacity METS (RN): 3 METS ANE Patient History - Allergies Allergies/Adverse Reactions: brimonidine [From Alphagan P] Allergy (Verified 04/24/18 20:33) - Home Medications Home Medications: Aspirin [Aspirin 81mg (*)] 81 mg PO DAILY 12/11/17 [Last Taken 04/28/18] Latanoprost 0.005% [Xalatan 0.005% (*)] 1 drops EACHEYE HS 01/15/18 [Last Taken Unknown] Timolol 0.5% [TIMOPTIC 0.5% (*)] 1 drops EACHEYE BID 01/15/18 [Last Taken Unknown] Atorvastatin Calcium [Lipitor 10 mg (*)] 10 mg PO DAILY 04/28/18 [Last Taken Unknown] Loratadine [Claritin] 10 mg PO DAILY PRN 04/28/18 [Last Taken Unknown] Losartan Potassium [Cozaar 25 mg (*)] 25 mg PO DAILY 04/28/18 [Last Taken Unknown] Metoprolol Tartrate [Lopressor 25 mg (*)] 25 mg PO BID 04/28/18 [Last Taken Unknown] - NPO status NPO Since - Liquids (Date): 05/04/18 NPO Since - Liquids (Time): 19:30 NPO Since - Solids (Date): 05/04/18 NPO Since - Solids (Time): 19:30 - Smoking Hx Smoking Status: Never smoked - Family Anes Hx Family Hx Anesthesia Complications: UNKNOWN ANE Labs/Vital Signs - Vital Signs Blood Pressure: 130/75 Heart Rate: 82 Respiratory Rate: 16 O2 Sat (%): 93 Height: 162.56 cm Weight: 59.874 kg ANE Physical Exam - Airway Neck exam: decreased ROM Mallampati Score: Class 3 Mouth exam: normal dental/mouth exam - Pulmonary Pulmonary: no respiratory distress - Cardiovascular Cardiovascular: regular rate and rhythym, systolic murmur - ASA Status ASA Status: III ANE Anesthesia Plan Anesthesia Plan: MAC, spinal Total IV Anesthesia: No
[2018-05-05] MEDS ORDERED: LIDOCAINE 2% 5 ML SDV ONE (08:14)
[2018-05-05] MEDS ORDERED: fentaNYL 100 MCG/2 ML INJ ONE (08:14)
[2018-05-05] MEDS ORDERED: PROPOFOL/EMULSION 500 MG/50 ML BOTTLE IV ONE (08:14)
[2018-05-05] MEDS ORDERED: PHENYLEPHRINE 10 MG/ML SDV ONE (08:14)
[2018-05-05] MEDS ORDERED: BUPIVACAINE/DEXTROSE 7.5MG/ML 2 ML SPINAL AMP SP ONE (08:14)
[2018-05-05] MEDS ORDERED: HYDROGEN PEROXIDE 473 ML BOTTLE TP ONE (09:46)
[2018-05-05] MEDS ORDERED: METOCLOPRAMIDE 10 MG/2 ML VIAL IVP PRN (10:15)
[2018-05-05] MEDS ORDERED: traMADol 50 MG TAB PO PRN (10:15)
[2018-05-05] MEDS ORDERED: CYCLOBENZAPRINE 10 MG TAB PO PRN (10:15)
[2018-05-05] MEDS ORDERED: ONDANSETRON 4 MG/2 ML VIAL IVP PRN (10:15)
[2018-05-05] MEDS ORDERED: BISACODYL 10 MG SUPP PR PRN (10:15)
[2018-05-05] MEDS ORDERED: MAGNESIUM HYDROXIDE 30 ML UDCUP PO PRN (10:15)
[2018-05-05] MEDS ORDERED: NS 500 ML IV PRN (10:15)
[2018-05-05] MEDS ORDERED: LACTULOSE 20 GM/30 ML UDCUP PO PRN (10:15)
[2018-05-05] MEDS ORDERED: DIPHENOXYLATE/ATROPINE LOMOTIL 1 TAB PO PRN (10:15)
[2018-05-05] MEDS ORDERED: diphenhydrAMINE 25 MG CAP PO PRN (10:15)
[2018-05-05] MEDS ORDERED: ONDANSETRON DISINTEGRATING 4 MG TAB PO PRN (10:15)
[2018-05-05] MEDS ORDERED: TEMAZEPAM 15 MG CAP PO PRN (10:15)
[2018-05-05] MEDS ORDERED: PROMETHAZINE HCL 25 MG/ML INJ IVP PRN (10:15)
[2018-05-05] MEDS ORDERED: POLYETHYLENE GLYCOL 3350 17 GM PKT PO PRN (10:15)
[2018-05-05] MEDS ORDERED: PROMETHAZINE HCL 25 MG SUPPR PR PRN (10:15)
[2018-05-05] MEDS ORDERED: oxyCODONE IR 5 MG TAB PO PRN (10:15)
--- NOTE | 2018-05-05 10:21 | POSTOPPROG ---
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 Inf/Abcess present in the surg proc area at time of surgery?: No EBL: [id number]
[2018-05-05] MEDS ORDERED: NALOXONE HCL 0.4 MG/ML INJ IVP PRN (10:28)
[2018-05-05] MEDS ORDERED: DEXAMETHASONE 4 MG/ML VIAL IVP PRN (10:28)
[2018-05-05] MEDS ORDERED: fentaNYL 100 MCG/2 ML INJ IVP PRN (10:28)
[2018-05-05] MEDS ORDERED: MEPERIDINE 25 MG/0.5 ML AMP IVP PRN (10:28)
[2018-05-05] MEDS ORDERED: LR 1,000 ML IV SCH (10:30)
--- NOTE | 2018-05-05 10:30 | POSTANESTH ---
Post Anesthetic Evaluation Cardiovascular Status: Normal, Stable, Similar to Pre-Op Cond Respiratory Status: Normal, Stable Level of Consciousness/Mental Status: Can Participate in Eval, Alert and Oriented Pain Control: Adequate, Prn Tx Ordered Nausea/Vomiting Control: Adequate, Prn Tx Ordered Complications Possibly Related to Anesthesia: None Noted (Doing well and at baseline. No questions or complaints)
--- NOTE | 2018-05-05 11:11 | GOP ---
DATE OF OPERATION: 05/05/2018 SURGEON: Cleve Bean MD NEUROSURGEON: Cleve Bean MD. PRODUCTION ASSEMBLY SUPERVISOR: Timo Paez and David Cedillo. ANESTHESIA: Combination of Marcaine, spinal, and IV sedation. ANESTHESIOLOGIST: Daniela Salguero DO. 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 PROCEDURE PERFORMED: Revision of left total hip arthroplasty with polyethylene liner exchange and fe moral head exchange. FINDINGS: ESTIMATED BLOOD LOSS: About 300 mL. The sponge and needle count were correct on 2 occasions. I used a Biomet ArCom XL ring lock acetabul ar liner with +3 mm wall thickness and a high wall. The femoral head was a cobalt chrome head with a 32 mm outside diameter and a 0 neck length. I took aerobic and anaerobic culture of the hip fluid. [facility] also [facility] Timo Paez and David Cedillo acted as surgical assistants. Their assistance was a medical necess ity for safe completion of the procedure. DESCRIPTION OF PROCEDURE: The patient was given 2 g of IV Ancef preoperatively within 60 minutes of surgery. She also received 1000 mg of IV tranexamic acid. She was placed on the operating room tabl e and given spinal anesthesia with Marcaine by Dr. Salguero. She was then placed supine and given IV se dation. A Martins catheter was not used. She wore a SHUBHAM stocking and an SCD on the nonoperative leg. She was rolled to the right lateral decubitus position. The position was secured with the pegboard table attachment. An axillary roll was used, and all pressure points were carefully padded. I was c areful to lock her pelvis in a vertical position. Her perineum was isolated with plastic adhesive dr andre. The left lower extremity was prepped with ChloraPrep. It was draped free using sterile sheets , stockinette, and Ioban plastic adhesive drape. The World Health Organization time-out was performed to verify the correct surgical side and site and the correct patient identity. The [place] time-out was also performed. I made a 6 inch oblique posterolateral skin incision. I used most of her pre-existing surgical incis ion. The subcutaneous tissues were sharply divided, and hemostasis was obtained using electrocautery . The fascia aureliano was identified and split along the axis of its fibers. I could see the previous n onabsorbable sutures from her previous operation. These were removed. I curved posteriorly and prox imally, and split the fascia of the gluteus sky and bluntly split the muscle fibers in line with their orientation. I had to mobilize the interval between the fascia aureliano and her trochanteric bursa in order to mobilize the tissues. The Charnley self-retaining retractor was inserted. Her sciatic nerve was embedded in scar tissue from her previous surgery. I kept my dissection directly off the p osterior edge of her greater trochanter. The external rotators and the posterior capsule were divide d as a single layer. They were scarred together from previous surgery. They were tagged and reflect ed posteriorly. A smooth 8-inch Steinmann pin was inserted vertically in the ilium superior to the a cetabulum to act as a retractor. There was a moderate amount of black metallosis discoloration in th e lining of the hip joint. I could see that a fragment of the polyethylene had fractured and was loo se in the posterior superior portion of the polyethylene. The femoral head was subluxed superiorly a nd laterally. The hip was dislocated. I took a culture of the fluid. The fluid was clear yellow fl uid. I also took 2 specimens of the blackened synovium for histologic examination. The existing 28 mm Bristol chrome head was tapped off the trunnion. Her femoral component was cemente d and looked solid. I then had to remove a lot of scar tissue and some bony overgrowth so that I cou ld expose the rim of the acetabular component. The polyethylene was badly thinned and worn. Superol aterally it had worn completely through its eagle thickness. I used a special punch extraction aleah ce to remove the remaining polyethylene. The locking ring was intact and was preserved. I made sure I had complete exposure circumferentially on the acetabular metal shell. The shell was solid. It w as properly positioned. I did a series of trial reductions. I trialed with a +3 high wall liner. I did a series of trial reductions. I tried the 0 neck length and the +3 neck length. I concluded th at the proper combination for stability and appropriate length was the +3 mm high wall liner and a 0 neck length on a 32 mm head. I was using [employer] App. The Biomet ArCom XL ring lock acetabular liner with a +3 high wall was then inserted and tapped into place. It was securely locked in the met al shell. I dialed the high wall so that it was directly posterior. I wanted to be sure that her hi p was completely stable. I then selected the Biomet modular head with a 0 neck length and a 32 mm ou tside diameter. This was tapped securely onto the clean trunnion. The hip was taken through a full range of motion. She had excellent stability anteriorly and posteri ozzie. The wound was thoroughly irrigated with a dilute Betadine solution. 40 mL of the joint anesthetic co cktail were injected into the capsule, the deep musculature, and the subcutaneous tissues around the skin edges. The combined layer of external rotators and posterior hip capsule were repaired with #2 FiberWire sut ures through drill holes in the greater trochanter. This provided a decent posterior repair. Her fa scia aureliano was closed first with 2 [id number] #2 FiberWire sutures followed by a running #2 barbe d Ethicon Stratafix PDO suture. Subcutaneous tissues were closed with a running 0 barbed Ethicon Str atafix Monoderm suture. The skin was closed with a running 3-0 barbed Ethicon Stratafix Monoderm sub cuticular suture. The skin edges were reapproximated and sealed with Dermabond glue. The wound was covered with a large piece of waterproof Mepilex surgical dressing. The sacral Mepilex dressing was also applied. A long-leg SHUBHAM stocking and SCD were applied to her left lower extremity. An abduction pillow was pl aced between her knees. She was awakened from anesthesia and rolled to the supine position on her [facility] g[facility]scobey. She was taken to PACU in satisfactory condition. /[id number]/MODL
[2018-05-05] MEDS: ACETAMINOPHEN 325 MG TAB PO SCH ×3 (13:36→23:13)
[2018-05-05] MEDS: KETOROLAC 15 MG/1 ML SDV IVP SCH ×3 (13:37→23:13)
--- NOTE | 2018-05-05 16:30 | PDMN ---
Medical Necessity Medical necessity: [facility] IP only surgery CPT 29509 L ASHLEIGH
[2018-05-05] MEDS: ceFAZolin 2 GM/DEXTROSE 100 ML IV SCH ×2 (16:50→23:13)
--- NOTE | 2018-05-05 19:04 | ASMTLACE ---
CATHY Acuity / Level of Answers: Yes Care: Did the patient have an inpatient admission? Comorbidities - select Answers: Congestive heart failure all that apply Coronary Artery Disease Dementia Other Notes: HTN # of Emergency department Answers: 5-8 visits in the last 6 months Score: 15 Date Signed: 05/05/2018 07:03 PM Electronically Signed By:Leeanne Kasper
[2018-05-05] MEDS: FAMOTIDINE 20 MG TAB PO SCH (20:26)
[2018-05-05] MEDS: SENNOSIDES/DOCUSATE SODIUM TAB PO SCH (20:26)
[2018-05-05] MEDS: METOPROLOL TARTRATE 25 MG TAB PO SCH (20:26)
[2018-05-05] MEDS: ASPIRIN 325 MG TAB PO SCH (20:26)
[2018-05-05] MEDS: LATANOPROST 0.005% 2.5 ML OPHT DROPS EACHEYE SCH (20:27)
[2018-05-05] MEDS: TIMOLOL 0.5% 15 ML OPHT.BTL EACHEYE SCH (20:27)
[2018-05-06] MEDS: ACETAMINOPHEN 325 MG TAB PO SCH ×3 (06:07→17:18)
[2018-05-06] MEDS: KETOROLAC 15 MG/1 ML SDV IVP SCH (06:08)
--- NOTE | 2018-05-06 07:43 | SOAPPROG ---
SOAP Progress Note Assessment/Plan: Assessment: Afebrile. Mild pain. Mild confusion as she was pre op. H/H is good. Films look good. Sciatic nerve intact. Plan: Needs 3 nights. Continue PT. 05/06/18 07:41 Objective: Vital Signs Temp Pulse Resp BP Pulse Ox 36.7 C 61 16 98/49 L 93 05/06/18 04:40 05/06/18 04:40 05/06/18 04:40 05/06/18 04:40 05/06/18 04:40 Microbiology 05/05/18 09:00 Gram Stain - Final Hip - Eswab Laboratory Results 05/06/18 04:21 05/05/18 05/06/18 05/07/18 05:59 05:59 05:59 Intake Total 2614 Output Total 1375 Balance 1239 ICD10 Worksheet Patient Problems: Problems Problem Status Onset Failed total hip arthroplasty Acute Confusion Acute
[2018-05-06] MEDS: ASPIRIN 325 MG TAB PO SCH (07:56)
[2018-05-06] MEDS: FAMOTIDINE 20 MG TAB PO SCH (07:56)
[2018-05-06] MEDS: SENNOSIDES/DOCUSATE SODIUM TAB PO SCH ×2 (07:56→19:48)
[2018-05-06] MEDS: FERROUS SULFATE 140 MG TAB.ER PO SCH (07:56)
[2018-05-06] MEDS: LOSARTAN POTASSIUM 25 MG TAB PO SCH (07:57)
[2018-05-06] MEDS: ATORVASTATIN CALCIUM 10 MG TAB PO SCH (07:57)
[2018-05-06] MEDS: METOPROLOL TARTRATE 25 MG TAB PO SCH ×2 (07:57→19:48)
[2018-05-06] MEDS ORDERED: CETIRIZINE 10 MG TAB PO PRN (09:00)
--- NOTE | 2018-05-06 10:21 | ASMTCMCOM ---
CM Note CM Note Notes: PT lives at the [facility] and has significant dementia. MDPOA is niece who lives out of town and has hired [employer] as a private service to help care for pt. Anneliese Juarez ([phone]) is their assisted sales representative and was at bedside. Pt was admitted for left hip revision on 05/05. Spoke with pt and pt's private rifle case repairer in the room who is requesting SNF rehab placement following discharge due to pt's dementia and inability to remember that she has had surgery yesterday. PT is also recommending SNF. Larry has requested [facility] or [facility]. Referrals have been sent. Awaiting recommendation from Surgeon. D/C Plan: TBD possibly SNF Date Signed: 05/06/2018 10:20 AM Electronically Signed By:Vida William
[2018-05-06] MEDS: TIMOLOL 0.5% 15 ML OPHT.BTL EACHEYE SCH ×2 (14:50→19:52)
[2018-05-06] MEDS ORDERED: HALOPERIDOL LACT 5 MG/ML INJ IVP ONE ×2 (18:29→19:00)
[2018-05-06] MEDS: HALOPERIDOL LACT 5 MG/ML INJ IVP PRN (18:46)
[2018-05-06] MEDS: LATANOPROST 0.005% 2.5 ML OPHT DROPS EACHEYE SCH (19:52)
--- NOTE | 2018-05-06 21:45 | GCON ---
MEDICINE CONSULTATION DATE OF CONSULTATION: 05/06/2018 REASON FOR CONSULTATION: Agitation. HISTORY: The patient is an 88-year-old female with a history of coronary artery disease, hypertensio n, hyperlipidemia, and dementia, who was admitted to the hospital for a right total hip arthroplasty. This was performed, May 05, by Dr. Cleve Bean. Her initial postop course was uncomplicated; however, on postop day 1, she developed significant agitation in the evening. . She was getting out of bed impulsively and screaming out "help me." She became physically combative with the nursing staff, hitting, punching and kicking. She does have a known history of dementia. I happene d to be on the unit during this event, and nursing staff communicated with orthopedic team, who reque sted an urgent medicine consult. She has, otherwise, been hemodynamically stable but is really not c urrently able to answer questions and provide a review of systems. She is afebrile. Has good urine output and adequate oral intake. PAST MEDICAL HISTORY: 1. Coronary artery disease. 2. Hypertension. 3. Hyperlipidemia. 4. Dementia. MEDICATIONS: Please see [facility] completed outpatient medication list. ALLERGIES: Brimonidine. FAMILY HISTORY: Unobtainable. SOCIAL HISTORY: Obtained from chart review. She is . She lives alone at the [facility]. She, apparently, does not drink alcohol or smoke cigarettes. REVIEW OF SYSTEMS: Unobtainable due to the patient's significant agitation. OBJECTIVE: VITAL SIGNS: Temperature is 36.4, blood pressure 116/56, heart rate 59, respiratory rate 15. She is 93% on room air. GENERAL: Patient is awake and severely agitated. She is not oriented to person, place, or time. HEENT: Head is atraumatic, normocephalic. Pupils equal, round, reactiv e to light. Extraocular muscles are intact. Oropharynx is clear. Mucous membranes are moist. NECK : Supple. There is no JVD. HEART: Regular rate and rhythm. LUNGS: Clear to auscultation bilatera lly. ABDOMEN: Benign. EXTREMITIES: Well perfused. NEUROLOGIC: She moves all 4 extremities. She has no focal neuro deficits. LABORATORY DATA: Hemoglobin this morning was 11.5. ASSESSMENT AND PLAN: The patient is an 88-year-old female with a history of coronary artery disease, hypertension, hyperlipidemia, who was admitted to the hospital for right total hip arthroplasty, dev eloped severe agitation on postop day 1. 1. Agitation in the setting of dementia. This is consistent with sundowning syndrome. We started o ff with low-dose intravenous Haldol 0.5 mg. This was not effective, and ultimately, she received a t otal of 3 mg of intravenous Haldol. For this reason, I will place her on telemetry to monitor her QT segments and will discontinue other QT-prolonging drugs, such as Zofran. We will continue with p.r. n. Haldol going forward, as well as redirection and reorientation, non-pharmacologic interventions as able. She also has a roll belt for her safety. 2. Right total hip arthroplasty, postop day 1. Postop management per Orthopedic Surgery. 3. Hypertension. She is currently normotensive. We will continue her outpatient medications as ord ered, including losartan 25 mg p.o. daily. 4. Coronary artery disease. This appears stable. She will continue on her aspirin, statin. 5. Code status: Patient is full code. 6. Deep venous thrombosis prophylaxis per orthopedic surgery team. 7. Disposition. Patient was admitted to inpatient status. Will receive ongoing PT, OT, and postop management. Thank you much for this consultation. Medicine will continue to follow on a daily basis. Please louie loving for further questions or concerns. /[id number]/MODL
[2018-05-07] MEDS ORDERED: HALOPERIDOL LACT 5 MG/ML INJ IVP ONE (00:07)
[2018-05-07] MEDS: ACETAMINOPHEN 325 MG TAB PO SCH ×4 (00:12→17:46)
[2018-05-07] MEDS: HALOPERIDOL LACT 5 MG/ML INJ IVP PRN (01:07)
[2018-05-07] MEDS ORDERED: LORazepam 2 MG/ML INJ IVP ONE (07:16)
[2018-05-07] MEDS ORDERED: LORazepam 2 MG/ML INJ ONE (07:29)
--- NOTE | 2018-05-07 07:31 | SOAPPROG ---
SOAP Progress Note Assessment/Plan: Assessment: Afebrile. Mild pain. Mild confusion as she was pre op. H/H is good. Films look good. Sciatic nerve intact. Plan: Needs 3 nights. Continue PT. 05/06/18 07:41 05/07/18 07:30 Afebrile. VS stable. Walking a lot in condon. Hip is comfortable. P: SNF Sat. Objective: Vital Signs Temp Pulse Resp BP Pulse Ox 36.4 C 67 16 122/59 H 94 05/06/18 23:06 05/07/18 03:19 05/07/18 03:19 05/07/18 03:19 05/07/18 03:19 Microbiology 05/05/18 09:00 Gram Stain - Final Hip - Eswab Laboratory Results 05/06/18 04:21 05/06/18 05/07/18 05/08/18 05:59 05:59 05:59 Intake Total 261 250 Output Total 1375 1999 Balance 1239 -1750 ICD10 Worksheet Patient Problems: Problems Problem Status Onset Failed total hip arthroplasty Acute chronic disease mgmt/ transitional care Acute Confusion Acute
[2018-05-07] MEDS ORDERED: FAMOTIDINE 20 MG TAB PO SCH (09:00)
--- NOTE | 2018-05-07 10:05 | ASMTCMCOM ---
CM Note CM Note Notes: CM spoke to Rosi, RN and Juan, pharmacist. CM completed triggered PASRR and sent it to Rohan Haddad. CM awaiting to hear back from Rohan Haddad. Pt is slatted to d/c tomorrow to [facility]. CM to follow. Plan: [facility] Date Signed: 05/07/2018 10:04 AM Electronically Signed By:NANCY Bridges
[2018-05-07] MEDS: ATORVASTATIN CALCIUM 10 MG TAB PO SCH (11:13)
[2018-05-07] MEDS: SENNOSIDES/DOCUSATE SODIUM TAB PO SCH ×2 (11:14→21:18)
[2018-05-07] MEDS: ASPIRIN 325 MG TAB PO SCH (11:14)
[2018-05-07] MEDS: TIMOLOL 0.5% 15 ML OPHT.BTL EACHEYE SCH ×2 (11:15→21:18)
[2018-05-07] MEDS: LOSARTAN POTASSIUM 25 MG TAB PO SCH (11:22)
[2018-05-07] MEDS: FERROUS SULFATE 140 MG TAB.ER PO SCH (11:22)
[2018-05-07] MEDS: METOPROLOL TARTRATE 25 MG TAB PO SCH ×2 (11:22→21:18)
--- NOTE | 2018-05-07 13:00 | HOSPPROG ---
Hospitalist Progress Note Assessment/Plan: 88y female with agitation post op. First encounter, chart reviewed. D/W RN. #Agitation with dementia -in postop setting -haldol not effective -responding well to Ativan -cont meds -no agitation currently #TKA -post op -stable #HTN -none #CAD -stable #Dispo -will need snf -cont current therapy Subjective: Up in chair. Eating lunch. Tired. No pain. Objective: Vital Signs Temp Pulse Resp BP Pulse Ox 36.8 C 88 15 110/62 93 05/07/18 11:31 05/07/18 11:31 05/07/18 11:31 05/07/18 11:31 05/07/18 11:31 Microbiology 05/05/18 09:00 Gram Stain - Final Hip - Eswab Laboratory Results 05/07/18 12:30 05/06/18 05/07/18 05/08/18 05:59 05:59 05:59 Intake Total 2614 250 Output Total 1375 1999 Balance 1239 -1750 - Physical Exam Constitutional: appears nourished, not in pain, chronically ill appearing Eyes: PERRL, anicteric sclera, EOMI Ears, Nose, Mouth, Throat: moist mucous membranes, hearing normal, ears appear normal Cardiovascular: No JVD, No tachycardia, No edema Respiratory: no respiratory distress, no rales or rhonchi, reduced air movement Gastrointestinal: normoactive bowel sounds, No tenderness, No ascites Skin: warm, normal color, No mottled Musculoskeletal: no joint effusions, pain with ROM, generalized weakness Neurologic: No AAOx3 Psychiatric: poor insight, poor judgement, poor memory, No thought process linear ICD10 Worksheet Patient Problems: Problems Problem Status Onset chronic disease mgmt/ transitional care Acute Failed total hip arthroplasty Acute Confusion Acute
[2018-05-07] MEDS: LORazepam 0.5 MG TAB PO PRN ×2 (13:38→21:23)
[2018-05-07] MEDS: LATANOPROST 0.005% 2.5 ML OPHT DROPS EACHEYE SCH (21:18)
[2018-05-07] MEDS: LORazepam 2 MG/ML INJ IVP PRN (21:56)
[2018-05-08] MEDS: ACETAMINOPHEN 325 MG TAB PO SCH ×3 (00:26→11:53)
[2018-05-08] MEDS: LORazepam 2 MG/ML INJ IVP PRN ×2 (02:22→06:44)
[2018-05-08 08:16] VITALS: BP 138/68
--- NOTE | 2018-05-08 09:46 | PDIAF ---
- Diagnosis Diagnosis: failed total hip arthroplasty - Medication Management Discharge Medications: Medications to Continue on Transfer Latanoprost 0.005% [Xalatan 0.005% (*)] 1 drops EACHEYE HS 01/15/18 [Last Taken Unknown] Timolol 0.5% [TIMOPTIC 0.5% (*)] 1 drops EACHEYE BID 01/15/18 [Last Taken Unknown] Atorvastatin Calcium [Lipitor 10 mg (*)] 10 mg PO DAILY 04/28/18 [Last Taken Unknown] Loratadine [Claritin] 10 mg PO DAILY PRN 04/28/18 [Last Taken Unknown] Losartan Potassium [Cozaar 25 mg (*)] 25 mg PO DAILY 04/28/18 [Last Taken Unknown] Metoprolol Tartrate [Lopressor 25 mg (*)] 25 mg PO BID 04/28/18 [Last Taken Unknown] Acetaminophen [Tylenol 325mg (*)] 650 mg PO Q6HRS tab 05/08/18 [Last Taken Unknown] Aspirin [Aspirin 325 mg (*)] 325 mg PO DAILY tab 05/08/18 [Last Taken Unknown] Ferrous Sulfate [Slow Fe 140 MG (*)] 140 mg PO DAILY tab.er 05/08/18 [Last Taken Unknown] LORazepam [Ativan (*)] 0.25 - 0.5 mg PO Q6HRS PRN tab 05/08/18 [Last Taken Unknown] Sennosides/Docusate Sodium [Senokot-S] 1 - 2 tab PO BID tab 05/08/18 [Last Taken Unknown] celeCOXIB [Celebrex (*)] 200 mg PO DAILY cap 05/08/18 [Last Taken Unknown] oxyCODONE IR [Oxycodone Ir (*)] 5 - 10 mg PO Q3HRS PRN tab 05/08/18 [Last Taken Unknown] traMADol [Ultram 50 mg (*)] 50 mg PO Q6HRS PRN tab 05/08/18 [Last Taken Unknown ] Discharge Medications: Refer to the Discharge Home Medication list for PRN reason. PICC Care - Routine: N/A - Orders Services needed: Physical Therapy, Occupational Therapy Diet Recommendation: no restrictions on diet Diet Texture: Regular Texture Diet Jaiden Stockings Discontinue Date: 1 week Wound Care Instructions: keep clean and dry. you may shower. Activity/Weight Bearing Restrictions: as tolerated Additional Instructions: posterior hip precautions - Follow Up Care Current Providers and Referrals: Elke Pereira MD [Primary Care Provider] - Cleve Bean MD [Medical Doctor] - 05/20/18
[2018-05-08] MEDS: METOPROLOL TARTRATE 25 MG TAB PO SCH (10:57)
[2018-05-08] MEDS: LOSARTAN POTASSIUM 25 MG TAB PO SCH (10:58)
[2018-05-08] MEDS: ASPIRIN 325 MG TAB PO SCH (10:59)
[2018-05-08] MEDS: SENNOSIDES/DOCUSATE SODIUM TAB PO SCH (11:05)
[2018-05-08] MEDS: ATORVASTATIN CALCIUM 10 MG TAB PO SCH (11:13)
[2018-05-08] MEDS: TIMOLOL 0.5% 15 ML OPHT.BTL EACHEYE SCH (11:16)
--- NOTE | 2018-05-08 12:31 | ASMTDCNOTE ---
Case Management Discharge Discharge Order Complete? Answers: Yes Patient to Obtain Answers: Other Notes: SNF Medications Transportation Arranged Answers: Other Notes: wheelchair van Transport will Pick (Date 05/08/2018 11:30 AM & Time) Faxed Final Orders Answers: Yes Agency/Facility Transfer Answers: Yes Report Printed & Faxed to Receiving Agency Family Notified Answers: Yes Notes: called Alessandra Juarez private sample case porter Discharge Comments Notes: Pt to discharge to [facility] with transportated arranged by them. RN given number to call report. No further CM needs noted at this time. Date Signed: 05/08/2018 12:30 PM Electronically Signed By:Vida William
--- NOTE | 2018-05-08 12:34 | ASDISCHSUM ---
Discharge Information Plan Status:SNF Medically Cleared to Leave:05/08/2018 Discharge Date:05/08/2018 11:58 AM D/C Disposition:Shelter Facility ADT D/C Disposition:Shelter Facility Projected Discharge Date:05/08/2018 11:00 AM Transportation at D/C:Other Discharge Delay Reason: Follow-Up Date:05/08/2018 11:00 AM Discharge Slot: Final Diagnosis:Osteoarthritis Placement Information Referral Type:*Skilled Nursing/SNF Referral ID:[id number] Provider Name:[facility] Address 1:[address] [place] [address] Address 2: City:[place] Selection Factors: State:[place] Patient Contact Information Contact Name:NARGIS Relationship:Ashely Address: Work Phone: City: [facility] Phone: [facility]/Zip Code: Email: Financial Information Financial Class:Medicare Primary Plan Desc:MEDICARE INPATIENT Primary Plan Number:[id number] Secondary Plan Desc: Secondary Plan Number: Assessment Information LACE LACE Acuity / Level of Answers: Yes Care: Did the patient have an inpatient admission? Comorbidities - select Answers: Congestive heart failure all that apply Coronary Artery Disease Dementia Other Notes: HTN # of Emergency department Answers: 5-8 visits in the last 6 months Score: 15 Date Signed: 05/05/2018 07:03 PM Electronically Signed By:Leeanne Kasper [facility] CM Progress Note CM Note CM Note Notes: PT lives at the [facility] and has significant dementia. MDPOA is niece who lives out of town and has hired [employer] as a private service to help care for pt. Anneliese Juarez ([phone]) is their assistance representative and was at bedside. Pt was admitted for left hip revision on 05/05. Spoke with pt and pt's private case hardener in the room who is requesting SNF rehab placement following discharge due to pt's dementia and inability to remember that she has had surgery yesterday. PT is also recommending SNF. Larry has requested [facility] or [facility]. Referrals have been sent. Awaiting recommendation from Surgeon. D/C Plan: TBD possibly SNF Date Signed: 05/06/2018 10:20 AM Electronically Signed By:Vida William [facility] CM Progress Note CM Note CM Note Notes: CM spoke to Rosi RN and Juan, pharmacist. CM completed triggered PASRR and sent it to Rohan Haddad. CM awaiting to hear back from Rohan Haddad. Pt is slatted to d/c tomorrow to [facility]. CM to follow. Plan: [facility] Date Signed: 05/07/2018 10:04 AM Electronically Signed By:NANCY Bridges Case Management Discharge Plan Note Case Management Discharge Discharge Order Complete? Answers: Yes Patient to Obtain Answers: Other Notes: SNF Medications Transportation Arranged Answers: Other Notes: wheelchair van Transport will Pick (Date 05/08/2018 11:30 AM & Time) Faxed Final Orders Answers: Yes Agency/Facility Transfer Answers: Yes Report Printed & Faxed to Receiving Agency Family Notified Answers: Yes Notes: called Alessandra Juarez private case hardener Discharge Comments Notes: Pt to discharge to [facility] today with transportated arranged by them. RN given number to call report. No further CM needs noted at this time. Date Signed: 05/08/2018 12:30 PM Electronically Signed By:Vida William Intervention Information
--- NOTE | 2018-05-08 14:44 | HOSPPROG ---
Hospitalist Progress Note Assessment/Plan: 88y female with agitation post op from TKA #Agitation with dementia -in postop setting -improved with ativan #TKA -post op -stable #HTN -none #CAD -stable #Dispo -dc to snf per ortho Subjective: no significant overnight events, patient confused Objective: Vital Signs Temp Pulse Resp BP Pulse Ox 36.1 C 100 16 138/68 H 91 L 05/08/18 08:15 05/08/18 10:57 05/08/18 08:15 05/08/18 10:58 05/08/18 08:15 Microbiology 05/05/18 09:00 Gram Stain - Final Hip - Eswab Laboratory Results 05/07/18 12:30 05/07/18 05/08/18 05/09/18 05:59 05:59 05:59 Intake Total 250 450 Output Total 2000 Balance -1750 450 Constitutional: appears nourished, not in pain, chronically ill appearing Eyes: PERRL, anicteric sclera, EOMI Ears, Nose, Mouth, Throat: moist mucous membranes, hearing normal, ears appear normal Cardiovascular: No JVD, No tachycardia, No edema Respiratory: no respiratory distress, no rales or rhonchi, reduced air movement Gastrointestinal: normoactive bowel sounds, No tenderness, No ascites Skin: warm, normal color, No mottled Musculoskeletal: no joint effusions, pain with ROM, generalized weakness Neurologic: No AAOx3 Psychiatric: poor insight, poor judgement, poor memory ICD10 Worksheet Patient Problems: Problems Problem Status Onset Confusion Acute Failed total hip arthroplasty Acute chronic disease mgmt/ transitional care Acute
== END 2018-05-08 11:58 | DRG 467 ==
LOC: F3N 06:10 → OBSVTOIN 10:17 → F3N 11:28
PROVIDERS: ADMIT Orthopaedic Surgery; ATTEND Orthopaedic Surgery
PROC: 0SRS0JZ Replacement of Left Hip Joint, Femoral Surface with Synthetic Substitute, Open Approach (ICD-10-PCS; principal; 2018-05-05 08:15)
PROC: 0SPS0JZ Removal of Synthetic Substitute from Left Hip Joint, Femoral Surface, Open Approach (ICD-10-PCS; principal; 2018-05-05 08:15)
PROC: 0SUE09Z Supplement Left Hip Joint, Acetabular Surface with Liner, Open Approach (ICD-10-PCS; principal; 2018-05-05 08:15)
DX: T84.021A Dislocation of internal left hip prosthesis, initial encounter (principal); F02.81 Dementia in other diseases classified elsewhere, unspecified severity, with behavioral disturbance; F05 Delirium due to known physiological condition; G30.1 Alzheimer's disease with late onset; I25.5 Ischemic cardiomyopathy; I10 Essential (primary) hypertension; E78.00 Pure hypercholesterolemia, unspecified; I25.10 Atherosclerotic heart disease of native coronary artery without angina pectoris; Z96.643 Presence of artificial hip joint, bilateral
CPT/HCPCS: 97116-GP; 97161-GP; 97166-GO; 97535-GO; G8978-GP-CJ; G8979-GP-CI; G8987-GO-CM; G8988-GO-CL; J0171; J0690; J1100; J1630; J1885; J2060; J2370; J2405; J2704; J2795; J3010